=== PATIENT | female | born 1960 | race Caucasian/White ===

== ENCOUNTER → 2023-11-23 15:14 | Outpatient (REF) | payer OTHER, SELFPAY | LOC: HWRAD 15:14 | PROVIDERS: ATTENDING PHYSICIAN Internal Medicine | DX: M79.602 Pain in left arm (principal); F41.9 Anxiety disorder, unspecified | CPT/HCPCS: 72050 ==

== ENCOUNTER 2024-03-27 08:18 | Emergency (ER) | payer OTHER, SELFPAY ==
[2024-03-27 08:32] VITALS: BP 150/78
--- NOTE | 2024-03-27 08:54 | ED.GENMED ---
History of Present Illness
General
Chief Complaint: Chest Pain
Source: patient
Time Seen by Provider: 03/27/24 08:36
History of Present Illness
History of Present Illness:
63-year-old female presents to the emergency room complaining of chest discomfort. Patient states has been having a gnawing type discomfort in the center of her chest for the past few days. The pain is present most of the time though it does go
away occasionally. The pain is less noticeable when she is active and distracts herself. She denies associated shortness of breath or diaphoresis. Pain does not seem to worsen with activity or exertion. Patient describes herself is very anxious
about her health. No fever or chills. Patient denies any cough or hemoptysis.
Past History
Past History
ED Past Medical History: Psychiatric (anxiety) and Other (IBS)
ED Past Surgical History: None
Patient has exhibited threatening behavior?: No
Social History
Personal:
Living: with family
Phy Exam
Physical Exam
Physical Exam:
General: Awake, Alert, Oriented X3. No acute distress.
Vitals: unremarkable
Head: Atraumatic
Eyes: Pupils equal, EOMI
Throat: Airway intact, no exudates
Neck: Trachea midline
Lungs: Clear and equal b/l
Heart: Regular rate, no murmurs
Abd: Soft, Nontender, No pulsatile mass
Neuro: Nonfocal
Skin: Warm, dry, no rash
Extremities: pulses equal b/l, no edema
Scores
Heart Score for Chest Pain Patients
STEMI patient?: No
History: Slightly or Non-Suspicious
ECG: Nonspecific Repolarization
Age: >45 - <65 years
Risk Factors: 1 or 2 Risk Factors
Troponin: </= Normal Limit
Heart Score for Chest Pain Patients: 3
Heart Score Risk: 2.5% MACE over next 6 weeks
Course
Orders/Labs/Results
Orders:
Orders
03/27/24 08:20
EKG [Electrocardiogram (*1)] Urgent
Reason for Study: Chest Pain
EKG- Treatment ONCE
03/27/24 08:53
Mag Hydrox/Al Hydrox/Simeth [Maalox] 30 ml Phenobarb/Hyoscy/Atropine/Scop [] 10 ml PO NOW
03/27/24 08:54
CR Chest - 2 Views Urgent
Comment:
Reason For Exam: chest pain
03/27/24 08:55
Mag Hydrox/Al Hydrox/Simeth [Maalox] 30 ml .ROUTE .STK-MED ONE
Phenobarb/Hyoscy/Atropine/Scop [] 10 ml .ROUTE .STK-MED ONE
03/27/24 08:59
Complete Blood Count/With Diff Urgent
03/27/24 09:00
Comprehensive Metabolic Panel Urgent
Lipase Urgent
Troponin I Urgent
Abnormal Lab Results
03/27/24 03/27/24
08:59 09:00
Hct 36.7 L %
(37.0-47.0)
MCV 80.8 L fL
(81.0-99.0)
Lymphocytes % 20.1 L %
(20.5-51.1)
Glucose 100 H mg/dl
(70-99)
03/27/24 08:59
03/27/24 09:00
Vital Signs
Initial and Last Documented VS:
Initial Vital Signs
Temp Pulse Resp BP Pulse Ox
97.9 F 97 16 150/78 100
03/27/24 08:32 03/27/24 08:32 03/27/24 08:32 03/27/24 08:32 03/27/24 08:32
Last Documented Vital Signs
Temp Pulse Resp BP Pulse Ox
97.9 F 76 26 119/63 97
03/27/24 08:32 03/27/24 10:39 03/27/24 08:45 03/27/24 10:39 03/27/24 10:39
MDM/Problems Addressed
Differential Diagnosis Includes:
Reflux, anxiety, ACS, chest wall pain
MDM/Problems Addressed:
Patient presents with chest pain. Been present essentially continuously for over 24 hours. Troponins normal. EKG does not show any acute ischemic changes. And having a long conversation with the patient definitely appears stress and anxiety is
at least playing a part in her symptoms. She should certainly follow-up with cardiology as she already has scheduled. Patient's primary care doctor has evidently recommended she start medication to help with her anxiety. Patient is apprehensive
to start a medication for this. Suggested she seek out a therapist and see if speaking to a therapist provides her any benefit. Patient ultimately is stable for discharge and outpatient follow-up
*Radiology
Radiology exam reviewed: preliminary read by ED provider (LEXY)
*Pulse Oximetry
Patient hypoxic: no
*EKG
Interpreted by ED Provider?: Yes
Comparison EKG: no changes
Heart Rate: 93
Rate: normal
Rhythm: sinus
Holiday: normal axis
Interval: normal interval
QRS Pattern: normal QRS
Ischemia: non-specific ST changes
*Final Assembly And Packing Supervisor Interpretation
Rate: normal
Interpretation: normal
Rhythm: sinus
*Critical Care Note
Total Time (30-74mins, 75-104mins- exclusive of procedures): Not Applicable
ED Attending Note
-
Portions of this chart may have been created with voice recognition software.� Occasional wrong word or��sound alike� substitutions may have occurred due to the inherent limitations of voice recognition software.
Discharge Plan
Departure
Patient Disposition: Home (Routine Discharge)
Date of Disposition: 03/27/24
Time of Disposition: 10:03
Patient with high blood pressure during this ER visit?: Yes
Condition: Good
Discharge Problem:
Chest pain
Instructions: Chest Pain CBC Follow Up, BLOOD PRESSURE
Prescriptions:
No Action
Probiotic
1 cap PO DAILY
Metamucil Powder
PO DAILY
Vitamin D3
1 cap PO DAILY
acetaminophen [Tylenol Extra Strength] 500 MG tablet
1,000 mg PO Q6HPRN PRN (Reason: pain, headache)
polyethylene glycol 3350 17 GRAMS powder in packet
17 grams PO DAILYPRN PRN (Reason: constipation) Qty: 1 0RF
ibuprofen 200 MG tablet
400 - 600 mg PO Q6HPRN PRN (Reason: moderate pain) Qty: 1 0RF
oxycodone 5 MG tablet
5 mg PO Q4HPRN PRN (Reason: breakthrough/severe pain) Qty: 10 0RF
Activity Restrictions/Additional Instructions:
Please keep your appointment with [facility] this Tuesday.
Interventions
Interventions:
*Risk Screen - Suicide Last Done: 03/27/24 08:32
*General Assessment Last Done: 03/27/24 08:32
*Neglect/Abuse Screening Last Done: 03/27/24 08:32
ED- Fall Risk Assessment Last Done: 03/27/24 10:41
*ED COVID-19 Vaccine History Last Done: 03/27/24 08:46
*Nursing Disposition Last Done: 03/27/24 10:41
ED- Cardiac Assessment Last Done: 03/27/24 08:46
Discharge Date and Time
Discharge Date/Time: 03/27/24 10:45
Print Language: SERBIAN
[2024-03-27] MEDS: MAALOX 40 PO (08:57)
[2024-03-27 09:09] LABS: % Basophils 0.5 % (0-2); % Eosinophils 0.8 % (0-6); % Immature Granulocytes 0.3 % (0-0.5); % Lymphocytes 20.1 % (20.5-51.1); % Monocytes 6.4 % (1.7-9.3); % Neutrophils 71.9 % (42.2-75.2); Absolute Eosinophils 0.1 10^3/uL (0-0.7); Absolute Lymphocytes 1.2 10^3/uL (1.2-3.4); Absolute Monocytes 0.4 10^3/uL (0.1-0.6); Absolute Neutrophils 4.4 10^3/uL (1.4-6.5); Hematocrit 36.7 % (37.0-47.0); Mean Corp Hgb Conc. 35.4 g/dL (33.0-37.0); Mean Corpuscular Hgb 28.6 pg (27.0-31.0); Mean Corpuscular Volume 80.8 fL (81.0-99.0); Mean Platelet Volume 9.9 fL (7.4-10.4); Nucleated Red Blood Cells % 0 %; Platelet Count 243 10^3/uL (130-400); Red Blood Cell Count 4.54 10^6/uL (4.20-5.40); Red Cell Dist. Width 12.7 % (11.5-14.5); White Blood Cell Count 6.1 10^3/uL (4.8-10.8)
[2024-03-27 09:22] LABS: ALT (SGPT) 17 U/L (0-35); AST (SGOT) 22 U/L (14-36); Albumin 4.1 g/dl (3.5-5.0); Alkaline Phosphatase 62 U/L (38-126); Blood Urea Nitrogen 16 mg/dl (7-17); Calcium 9.4 mg/dl (8.4-10.2); Carbon Dioxide 25 mmol/L (22-30); Chloride 106 mmol/L (98-107); Glucose 100 mg/dl (70-99); Lipase 190 U/L (23-300); Potassium 4.1 mmol/L (3.5-5.1); Sodium 141 mmol/L (135-145); Total Bilirubin 0.8 mg/dl (0.2-1.3); Total Protein 6.9 g/dl (6.3-8.2); eGFR > 60.00
[2024-03-27 09:33] LABS: Troponin I < 0.012 ng/ml
[2024-03-27 10:39] VITALS: BP 119/63
== END 2024-03-27 10:45 | disposition home or self-care (01) ==
LOC: EMR 08:18
PROVIDERS: EMERGENCY PHYSICIAN Emergency Medicine; FAMILY PHYSICIAN Internal Medicine
DX: R07.89 Other chest pain (principal); F41.9 Anxiety disorder, unspecified; R03.0 Elevated blood-pressure reading, without diagnosis of hypertension
CPT/HCPCS: 99285; 71046; 80053; 83690; 84484; 85025; 93005

== ENCOUNTER 2024-04-12 06:18 | Day surgery (SDC) | payer OTHER, SELFPAY | END 2024-04-12 12:03 | disposition home or self-care (01) | LOC: GI 06:18 | PROVIDERS: ATTENDING PHYSICIAN Internal Medicine | DX: R07.89 Other chest pain (principal); K29.60 Other gastritis without bleeding | CPT/HCPCS: 43239; 88305; 88342 ==

== ENCOUNTER → 2024-04-13 08:19 | Outpatient (REF) | payer OTHER, SELFPAY | LOC: HWWDC 08:19 | PROVIDERS: ATTENDING PHYSICIAN Obstetrics & Gynecology; FAMILY PHYSICIAN Internal Medicine | DX: Z12.31 Encounter for screening mammogram for malignant neoplasm of breast (principal) | CPT/HCPCS: 77063; 77067 ==

== ENCOUNTER 2024-05-18 14:25 | Emergency (ER) | payer OTHER, SELFPAY ==
[2024-05-18 14:34] VITALS: BP 134/86
[2024-05-18 15:12] LABS: % Basophils 0.5 % (0-2); % Eosinophils 0.7 % (0-6); % Immature Granulocytes 0.1 % (0-0.5); % Lymphocytes 21.8 % (20.5-51.1); % Monocytes 4.9 % (1.7-9.3); Absolute Eosinophils 0.1 10^3/uL (0-0.7); Absolute Lymphocytes 1.6 10^3/uL (1.2-3.4); Absolute Monocytes 0.4 10^3/uL (0.1-0.6); Absolute Neutrophils 5.4 10^3/uL (1.4-6.5); Hematocrit 40.1 % (37.0-47.0); Mean Corp Hgb Conc. 34.9 g/dL (33.0-37.0); Mean Corpuscular Hgb 29.3 pg (27.0-31.0); Mean Corpuscular Volume 83.9 fL (81.0-99.0); Mean Platelet Volume 10.3 fL (7.4-10.4); Nucleated Red Blood Cells % 0 %; Platelet Count 277 10^3/uL (130-400); Red Blood Cell Count 4.78 10^6/uL (4.20-5.40); Red Cell Dist. Width 12.6 % (11.5-14.5); White Blood Cell Count 7.5 10^3/uL (4.8-10.8)
[2024-05-18 15:22] LABS: ALT (SGPT) 20 U/L (0-35); AST (SGOT) 26 U/L (14-36); Albumin 4.4 g/dl (3.5-5.0); Alkaline Phosphatase 67 U/L (38-126); Blood Urea Nitrogen 8 mg/dl (7-17); Calcium 9.7 mg/dl (8.4-10.2); Carbon Dioxide 32 mmol/L (22-30); Chloride 102 mmol/L (98-107); Glucose 93 mg/dl (70-99); Lipase 157 U/L (23-300); Sodium 139 mmol/L (135-145); Total Bilirubin 0.8 mg/dl (0.2-1.3); Total Protein 7.3 g/dl (6.3-8.2); eGFR > 60.00
[2024-05-18 17:04] VITALS: BP 149/84
[2024-05-18 17:31] LABS: Urine Albumin Negative (Neg - Trace); Urine Bilirubin Negative (Negative); Urine Character Clear (Clear); Urine Color Yellow; Urine Glucose Negative (Negative); Urine Ketone Negative (Negative); Urine Leukocyte 2+ (Negative); Urine Nitrite Negative (Negative); Urine Occult Blood Negative (Negative); Urine Urobilinogen Negative (Neg - 1+)
[2024-05-18 18:05] LABS: Urine Bacteria Moderate (Negative); Urine Red Blood Cell 0-2 /HPF (0-2); Urine Squamous Cell 26-30 /LPF (Few); Urine White Cell 16-20 /HPF (0-5)
--- NOTE | 2024-05-18 18:15 | ED.GENMED ---
History of Present Illness
General
Chief Complaint: Abdominal Symptoms
Source: patient
Exam Limitations: none
Time Seen by Provider: 05/18/24 17:57
History of Present Illness
History of Present Illness:
This is a 63 year old female that comes in with c/o abd pain. States that she went to see the PCP on Tuesday State that she has abd pain on both sided and it is getting worse. States that today she felt numbness in the vaginal area and into the
thighs. States that she sometimes has pain all around to the back. States that her PCP told her to take Prilosec. States that she is nauseated, has had diarrhea, headache on and off. Denies any fever, chills, chest pain, SOB, vomiting, dizziness,
urinary burning.
Past History
Past History
ED Past Medical History: Psychiatric (anxiety, Panic disorder) and Other (IBS, Back pain, Diverticulitis, Anemia, )
ED Past Surgical History: Cholecystectomy, Gynecological (Uterine ablation , Fibroid removed), Tonsilectomy and Other (Hernia surgery, )
Patient has exhibited threatening behavior?: No
Social History
Tobacco: Non-smoker
Alcohol: None
Personal:
Living: with family
Employment: Employed
Review of Systems
Review of Systems
All Other Systems: ROS reviewed and negative except as documented in HPI and ROS
Constitutional: Reports no symptoms; Denies fever or chills
EENT: Reports no symptoms
Respiratory: Reports no symptoms; Denies cough or trouble breathing
Cardiac: Reports no symptoms; Denies chest pain
ABD/GI: Reports abdominal pain, nausea and diarrhea; Denies vomiting
: Reports no symptoms; Denies dysuria, frequency or urgency
Musculoskeletal: Reports no symptoms
Skin: Reports no symptoms
Neurological: Reports headache (on and off); Denies dizzy
Psychiatric: Reports no symptoms
Phy Exam
General Physical Exam
General Presentation: well appearing and no apparent distress
General age: appears stated age
General Skin: warm and dry
General Habitus: normal
General Mental: alert
General Hydration: appears well hydrated
ENT Exam
ENT Exam: TM's normal, pharynx normal and neck supple
Eye Exam
Eye Exam: EOMI
Cardiovascular Exam
Cardiovascular Exam: regular rate/rhythm, no edema, no murmur and normal peripheral pulses
Pulmonary Exam
Pulmonary Exam: lungs clear, no respiratory distress, no rales, chest non tender, no crackles, no rhonchi, no wheezing and no cough
Gastrointestinal Exam
Gastrointestinal Exam: normal bowel sounds, soft, no organomegaly, no pulsatile mass, non distended and tender (Generalized tenderness with palpation)
Musculoskeletal Exam
Musculoskeletal Exam: full ROM and no edema
Skin Exam
Skin Exam: normal color, warm/dry, no rash and no petechia
Psychiatric Exam
Psychiatric Exam: normal mood/affect
Course
Orders/Labs/Results
Orders:
Orders
05/18/24 14:43
Complete Blood Count/With Diff Urgent
Comprehensive Metabolic Panel Urgent
Lipase Urgent
05/18/24 17:02
UA Reflex to Culture [Urinalysis Reflex To Culture] Urgent
Date Specimen was Collected: 05/18/24
Time Specimen was Collected: 17:01
Urine Microscopic Reflex Cult Urgent
Urine Culture Urgent
ARIANE Source: U
Specimen Description:
Date Specimen was Collected: 05/18/24
Time Specimen was Collected: 17:01
05/18/24 18:14
CT Abd/pel W Iv And Oral Contr Urgent
Comment:
Reason For Exam: Generalized abd pain
0.9% Sodium Chloride 1000 ml [Nss] 1,000 ml IV BOLUS
Diphenhydramine [Benadryl] 50 mg IV NOW STA
Hydrocortisone Sod Succinate [Solu-Cortef] 200 mg IV NOW STA
Iohexol [Omnipaque] See Protocol PO NOW STA
05/18/24 21:00
CefTRIAXone [Rocephin] 1,000 mg IV NOW STA
Abnormal Lab Results
05/18/24 05/18/24
14:43 17:02
Carbon Dioxide 32 H mmol/L
(22-30)
Leukocyte Esterase Rfl 2+ A
(Negative)
Urine WBC (Reflex) 16-20 A /HPF
(0-5)
Urine Bacteria (Reflex) Moderate A
(Negative)
05/18/24 14:43
05/18/24 14:43
Carbon dioxide slighty elevated. Urine positive for infection. Lipase normal at 157
Vital Signs
Initial and Last Documented VS:
Initial Vital Signs
Temp Pulse Resp BP Pulse Ox
97.9 F 97 18 134/86 100
05/18/24 14:34 05/18/24 14:34 05/18/24 14:34 05/18/24 14:34 05/18/24 14:34
Last Documented Vital Signs
Temp Pulse Resp BP Pulse Ox
97.9 F 77 20 157/71 100
05/18/24 14:34 05/18/24 20:37 05/18/24 20:37 05/18/24 20:37 05/18/24 20:37
MDM/Problems Addressed
Differential Diagnosis Includes:
IBS, UTI, Diverticulitis
MDM/Problems Addressed:
This is a 63 year old female that comes in with c/o abd pain that is getting worse. States that today she then had some numbness in the vaginal area and into the thighs but it is better now.
Will check labs and get CT scan. Will premedicate before CT and given IV fluids. Will treat with antibiotics for UTi.
Chronic conditions affecting care:
Diverticulitis
Acute Exacerbation and/or Progression of Chronic Illness:
NA
*Radiology
Radiology exam reviewed: radiology read reviewed (CT- Colonic diverticulosis without evidence of acute diverticulitis. Grade 2 anterolisthesis of L5 on S1 with bilateral L5 pars defects, unchanged from prior)
*Pulse Oximetry
Patient hypoxic: no
*EKG
Interpreted by ED Provider?: NA
Rate: EKG- N/A
*Bolt Maker Interpretation
Rate: Bolt Maker- N/A
*Critical Care Note
Total Time (30-74mins, 75-104mins- exclusive of procedures): Not Applicable
ED Attending Note
-
Portions of this chart may have been created with voice recognition software.� Occasional wrong word or��sound alike� substitutions may have occurred due to the inherent limitations of voice recognition software.
Discharge Plan
Departure
Patient Disposition: Home (Routine Discharge)
Date of Disposition: 05/18/24
Time of Disposition: 22:50
Patient with high blood pressure during this ER visit?: Yes
Condition: Good
Covid-19: Not Applicable
Discharge Problem:
Abdominal pain, UTI (urinary tract infection)
Instructions: Urinary tract infection - Discharge instructions, Abdominal Pain, BLOOD PRESSURE
Prescriptions:
New
cefdinir 300 mg capsule
300 mg PO BID Qty: 14 0RF
No Action
Probiotic
1 cap PO DAILY
Metamucil Powder
PO DAILY
Vitamin D3
1 cap PO DAILY
acetaminophen [Tylenol Extra Strength] 500 MG tablet
1,000 mg PO Q6HPRN PRN (Reason: pain, headache)
polyethylene glycol 3350 17 GRAMS powder in packet
17 grams PO DAILYPRN PRN (Reason: constipation) Qty: 1 0RF
ibuprofen 200 MG tablet
400 - 600 mg PO Q6HPRN PRN (Reason: moderate pain) Qty: 1 0RF
oxycodone 5 MG tablet
5 mg PO Q4HPRN PRN (Reason: breakthrough/severe pain) Qty: 10 0RF
Referrals:
Lili Guardado DO [Family Provider] - Call in 1-3 days for appt
Activity Restrictions/Additional Instructions:
As discussed, your blood work is normal. You do have a urinary tract infection. Your CT scan that you have changes in the lumbar spine but this is consistent with prior exams. Your abd pain is most likely a combination of the Urinary tract infection
and coming from the back. Please follow up with the family doctor. You have also been given the name of a provider education specialist for further evaluation. You have had a prescription sent to your pharmacy to treat the urinary tract infection. Please
take this as directed until finished. IF YOU HAVE INCREASED OR CHANGING PAIN, OR YOU HAVE ANY OTHER CONCERNS PLEASE RETURN TO THE EMEGENCY ROOM.
Interventions
Interventions:
*Risk Screen - Suicide Last Done: 05/18/24 17:04
*General Assessment Last Done: 05/18/24 17:04
*Neglect/Abuse Screening Last Done: 05/18/24 17:04
*ED COVID-19 Vaccine History Last Done: 05/18/24 17:04
EJ-Pvukyu-Lszqiarsbl Assessment Last Done: 05/18/24 17:04
Discharge Date and Time
Print Language: SPANISH
[2024-05-18] MEDS: OMNIPAQUE 50 ML PO (18:58)
[2024-05-18] MEDS: NSS 1000 IV (19:09)
[2024-05-18] MEDS: BENADRYL 50 MG IV (20:05)
[2024-05-18] MEDS: SOLU-CORTEF 200 MG IV (20:05)
[2024-05-18 20:37] VITALS: BP 157/71
[2024-05-18] MEDS: ROCEPHIN 1000 MG IV (21:55)
[2024-05-18 23:16] VITALS: BP 144/67
== END 2024-05-18 23:17 | disposition home or self-care (01) ==
LOC: EMR 14:25
PROVIDERS: Emergency Medicine; EMERGENCY PHYSICIAN Emergency Medicine; FAMILY PHYSICIAN Internal Medicine
DX: N39.0 Urinary tract infection, site not specified (principal); R10.9 Unspecified abdominal pain; R03.0 Elevated blood-pressure reading, without diagnosis of hypertension
CPT/HCPCS: 99285; 96374; 96375 ×2; 96361; 74177; 80053; 81003; 81015; 83690; 85025; 87086; Q9967

== ENCOUNTER 2024-10-20 19:21 | Emergency (ER) | payer OTHER, SELFPAY ==
[2024-10-20 19:26] VITALS: BP 157/89
--- NOTE | 2024-10-20 20:22 | ED.GENMED ---
History of Present Illness
General
Chief Complaint: Musculo-Skeletal Complaint
Source: patient
Exam Limitations: none
Time Seen by Provider: 10/20/24 19:55
Nursing documentation reviewed up to this point in time: agreed with
History of Present Illness
History of Present Illness:
The patient is a pleasant 64-year-old female who reports intermittent left knee pain and locking of the left knee for the last few days. Patient reports that since last night, she has noticed fullness and pain both along the inner aspect of the
left knee as well as in the back of the left knee. Patient reports that the pain was so bad last night she could not sleep. Patient reports the pain radiates up towards her left hip and down into her left calf. She denies numbness and weakness of
her legs. She denies injury. She denies any chronic knee issues. She does report chronic low back pain. Patient denies a history of DVT and PE. She denies chest pain or shortness of breath
Past History
Past History
ED Past Medical History: Psychiatric (anxiety, Panic disorder) and Other (IBS, Back pain, Diverticulitis, Anemia, )
ED Past Surgical History: Cholecystectomy, Gynecological (Uterine ablation , Fibroid removed), Tonsilectomy and Other (Hernia surgery, )
Patient has exhibited threatening behavior?: No
Social History
Tobacco: Non-smoker
Alcohol: None
Drug: None
Personal:
Living: with family
Employment: Employed
Family History
Family History: Other
Review of Systems
Review of Systems
Allergies reviewed?: Yes
All Other Systems: ROS reviewed and negative except as documented in HPI and ROS
Constitutional: Reports no symptoms
EENT: Reports no symptoms
Respiratory: Reports no symptoms
Cardiac: Reports no symptoms
ABD/GI: Reports no symptoms
: Reports no symptoms
Musculoskeletal: Reports joint pain and joint swelling
Skin: Reports no symptoms
Neurological: Reports no symptoms
Endocrine: Reports no symptoms
Hematologic/Lymphatic: Reports no symptoms
Psychiatric: Reports no symptoms
Phy Exam
Physical Exam
Physical Exam:
Physical Exam
General: no apparent distress, not acutely ill
Neck: supple. no meningeal signs. normal psoterior pharynx
Heart: s1/s2 regular rate and rhythm, no murmur. equal radial pulses.
Lungs: no acute respiratory distress. clear bilaterally
Abdomen: normal bowel sounds. not tender. no CVAT
Neuro: alert and oriented. no focal neurological deficits. No saddle anesthesia. 5 out of 5 strength in bilateral lower extremities. Equal sensation bilateral lower extremities
Skin: no rash. No erythema of left knee. No warmth of anterior left knee. Soft tissue fullness of medial aspect of left knee as well as protrusion and fullness of posterior left knee
Psychiatric: well kept. interactive and cooperative
Extremities: no edema. no calf tenderness. negative homans. good distal pulses
Course
Orders/Labs/Results
Orders:
Orders
10/20/24 20:27
CR Knee - Left 4 Or More View* Urgent
Comment:
Reason For Exam: nontraumatic pain of medial and posterior knee
Legs, left US [US Periph Venous LOWER Ext LT] Urgent
Comment:
Reason For Exam: pain and fullness of medial and posterior L knee
Vital Signs
Initial and Last Documented VS:
Initial Vital Signs
Temp Pulse Resp BP Pulse Ox
98.2 F 90 18 157/89 96
10/20/24 19:26 10/20/24 19:26 10/20/24 19:26 10/20/24 19:26 10/20/24 19:26
Last Documented Vital Signs
Temp Pulse Resp BP Pulse Ox
98.2 F 90 18 157/89 96
10/20/24 19:26 10/20/24 19:26 10/20/24 19:26 10/20/24 19:26 10/20/24 19:26
MDM/Problems Addressed
Differential Diagnosis Includes:
Intact Petit's cyst of left popliteal area of knee, ruptured Petit's cyst, DVT of left lower extremity
MDM/Problems Addressed:
Patient presents with acute medial and posterior pain and fullness of left knee area
Chronic conditions affecting care:
Patient's pain may be related to radiculopathy due to her chronic low back pain
Acute Exacerbation and/or Progression of Chronic Illness:
Patient is acutely hypertensive, likely due to discomfort and anxiety
Acute Exacerbation and/or Progression of Chronic Illness: HTN
*Radiology
Radiology exam reviewed: radiology read reviewed
*Pulse Oximetry
Patient hypoxic: no
*Critical Care Note
Total Time (30-74mins, 75-104mins- exclusive of procedures): Not Applicable
Update Note
Update Note:
Patient is neurovascularly intact. Ultrasound shows no sign of DVT. Confirms Petit's cyst which is what I suspected based on her exam.
ED Attending Note
-
Portions of this chart may have been created with voice recognition software.� Occasional wrong word or��sound alike� substitutions may have occurred due to the inherent limitations of voice recognition software.
Discharge Plan
Departure
Patient Disposition: Home (Routine Discharge)
Date of Disposition: 10/20/24
Time of Disposition: 22:10
Patient with high blood pressure during this ER visit?: Yes
Condition: Good
Covid-19: Not Applicable
Discharge Problem:
Petit's cyst, ruptured
Instructions: Petit's Cyst (DC), BLOOD PRESSURE
Prescriptions:
No Action
Probiotic
1 cap PO DAILY
Metamucil Powder
PO DAILY
Vitamin D3
1 cap PO DAILY
acetaminophen [Tylenol Extra Strength] 500 MG tablet
1,000 mg PO Q6HPRN PRN (Reason: pain, headache)
polyethylene glycol 3350 17 GRAMS powder in packet
17 grams PO DAILYPRN PRN (Reason: constipation) Qty: 1 0RF
ibuprofen 200 MG tablet
400 - 600 mg PO Q6HPRN PRN (Reason: moderate pain) Qty: 1 0RF
oxycodone 5 MG tablet
5 mg PO Q4HPRN PRN (Reason: breakthrough/severe pain) Qty: 10 0RF
cefdinir 300 mg capsule
300 mg PO BID Qty: 14 0RF
Referrals:
Jones Villa MD [Active, Orthopedics]
Referral Note: Call Tuesday to schedule an appointment
Lili Guardado DO [Family Provider, Family Practice]
Activity Restrictions/Additional Instructions:
Take 1000 mg of Tylenol every 6 hours in combination with 400 mg of Motrin every 6 hours for pain. Please call orthopedic doctor on Tuesday.
Interventions
Interventions:
*Risk Screen - Suicide Last Done: 10/20/24 19:26
*General Assessment Last Done: 10/20/24 19:26
*Neglect/Abuse Screening Last Done: 10/20/24 19:26
ED-Musculoskeletal Assessment Last Done: 10/20/24 21:30
Discharge Date and Time
Print Language: BRAZILIAN
== END 2024-10-20 22:25 | disposition home or self-care (01) ==
LOC: EMR 19:21
PROVIDERS: EMERGENCY PHYSICIAN Emergency Medicine; FAMILY PHYSICIAN Internal Medicine
DX: M71.22 Synovial cyst of popliteal space [Baker], left knee (principal); F41.0 Panic disorder [episodic paroxysmal anxiety]; K58.9 Irritable bowel syndrome, unspecified; Z90.49 Acquired absence of other specified parts of digestive tract
CPT/HCPCS: 99284; 73564; 93971

== ENCOUNTER → 2025-04-24 09:18 | Outpatient (REF) | payer SELFPAY | LOC: HWRAD 09:18 | PROVIDERS: ATTENDING PHYSICIAN Nurse Practitioner Gerontology; FAMILY PHYSICIAN Internal Medicine | DX: E78.5 Hyperlipidemia, unspecified (principal); Z71.89 Other specified counseling | CPT/HCPCS: 75571 ==